=== PATIENT | male | born 1985 | race Caucasian/White ===

== ENCOUNTER 2018-12-10 01:54 | Emergency (ER) | payer SELFPAY ==
[~2018-12-10] VITALS: Ht 177.8 cm; Wt 78.9 kg
[2018-12-10 01:57] VITALS: Ht 177.8 cm; Wt 78.9 kg
[2018-12-10 03:09] LABS: AMPHETAMINE QUAL UR NONE DETECTED (See below)
[2018-12-10 03:36] VITALS: BP 132/85
== END 2018-12-10 03:36 | disposition home or self-care (01) ==
LOC: ED 01:54
PROVIDERS: Emergency Medicine
DX: F14.90 Cocaine use, unspecified, uncomplicated (principal); J45.909 Unspecified asthma, uncomplicated